=== PATIENT | male | born 1945 | race Caucasian/White ===

== ENCOUNTER 2017-10-28 11:32 | Emergency (ER) | payer MEDICARE, BC ==
[2017-10-28 12:53] VITALS: BP 101/68
[2017-10-28] MEDS ORDERED: Albuterol 2.5 MG/3 ML NEB.SOL* (0.083%) INH ONE (13:22)
[2017-10-28] MEDS ORDERED: Ipratropium 0.5MG/2.5ML NEB* 0.5 MG/2.5 ML NEB.SOLN INH ONE (13:22)
--- NOTE | 2017-10-28 13:43 | RAD ---
HISTORY: Cough COMPARISONS: August 25, 2014 VIEWS: 5: Frontal dual-energy and lateral views of the chest. FINDINGS: CARDIOMEDIASTINAL SILHOUETTE: The cardiomediastinal silhouette is normal. NIKKIE: The nikkie are normal. PLEURA: The costophrenic angles are sharp. No pleural abnormalities are noted. LUNG PARENCHYMA: The lungs are clear. ABDOMEN: The upper abdomen is clear. There is no subphrenic gas. BONES AND SOFT TISSUES: No bone or soft tissue abnormalities are noted. OTHER: None. IMPRESSION: NO ACTIVE CARDIOPULMONARY DISEASE.
--- NOTE | 2017-10-28 15:01 | UC ---
Wilfredo Fermin Nilda, scribed for Tricia Freed DO on 10/28/17 at 1328 . Respiratory Complaint HPI - HPI Summary HPI Summary: This patient is a 72 year old M presenting to [facility] with a chief complaint of constant, gradually worsening upper respiratory symptoms for the past 4 weeks. The patient rates the pain 1/10 in severity. Symptoms aggravated by bending over (feels pain in ears), and alleviated by cold weather and running. Patient reports ear fullness with brown drainage and loss of hearing, sinus pressure, productive cough (green/brown mucous), sleep disturbance secondary to cough, wheezing, loss of appetite, and fatigue. Pt states 3 days ago, he visited PCP and was given Z-pack and Benadryl to help him sleep. Twenty years ago, pt states he ruptured ear from playing softball. - History of Current Complaint Chief Complaint: UCRespiratory Stated Complaint: URI Hx Obtained From: Patient Onset/Duration: Sudden Onset, Lasting Weeks, Still Present Timing: Constant Severity Currently: Mild Pain Intensity: 1 Pain Scale Used: 0-10 Numeric Character: Cough: Productive, Sputum Description: - green/brown mucous Aggravating Factors: Other - bending over Alleviating Factors: Other - cold weather and running Associated Signs And Symptoms: Positive: URI, Nasal Congestion, Sinus Discomfort - Allergies/Home Medications Allergies/Adverse Reactions: Allergies Allergy/AdvReac Type Severity Reaction Status Date / Time No Known Allergies Allergy Unverified 10/28/17 12:53 Home Medications: Home Medications Azithromyxin AB (NF) [Z-Ab (Zithromax) 250 mg tabs #6] 10/28/17 [History Confirmed 10/28/17] Diphenhydramine HCl [Benadryl Allergy 25 MG CAP] 25 mg PO 10/28/17 [History] Guaifenesin-Codeine [Guaiatussin AC] 1 syp PO 10/28/17 [History] PMH/Surg Hx/FS Hx/Imm Hx Previously Healthy: Yes - Surgical History Surgical History: Yes Surgery Procedure, Year, and Place: T&A,. RT EYE SURGERY - MUSCLE CORRECTION. PROSTATECTOMY. Lt ELBOW. VASECTOMY - Family History Known Family History: Positive: Cardiac Disease - Social History Lives: With Family Alcohol Use: None Substance Use Type: None Smoking Status (MU): Never Smoked Tobacco Review of Systems Constitutional: Fatigue ENT: Ear Ache - fullness wih brown drainage and loss of hearing, Sinus Congestion Respiratory: Cough - productive, causing sleep disturbance, Other - wheezing Gastrointestinal: Other - loss of appetite All Other Systems Reviewed And Are Negative: Yes Physical Exam Triage Information Reviewed: Yes Appearance: Well-Appearing, No Pain Distress, Well-Nourished Vital Signs: Initial Vital Signs Temp 96.3 F 10/28/17 12:46 Pulse 66 10/28/17 12:46 Resp 18 10/28/17 12:46 BP 101/68 10/28/17 12:46 Pulse Ox 100 10/28/17 12:46 Vital Signs Reviewed: Yes Eyes: Positive: Conjunctiva Clear. Negative: Discharge ENT: Positive: Other - decreased hearing, bilat TMs grossly abnormal. Negative : Tonsillar swelling, Tonsillar exudate, Trismus, Muffled voice, Hoarse voice Neck exam: Normal Neck: Positive: Supple Respiratory: Positive: No respiratory distress, No accessory muscle use, Wheezing - diffuse wheezing Cardiovascular: Positive: RRR, No Murmur Abdomen Description: Positive: Nontender, Soft. Negative: Distended, Guarding Bowel Sounds: Positive: Present Musculoskeletal Exam: Normal Neurological: Positive: Alert, Muscle Tone Normal Psychological Exam: Normal Psychological: Positive: Age Appropriate Behavior Skin Exam: Normal Skin: Positive: Other - Warm, Dry, Normal color UC Diagnostic Evaluation - Laboratory O2 Sat by Pulse Oximetry: 100 - Radiology Radiology Interpretation Completed By: Radiologist - CXR, per radiologist, reveals no active cardiopulmonary disease. Dr. Freed has reviewed this report. Re-Evaluation - Re-Evaluation First Eval Re-Evaluation Time: 13:54 Comment: Wheezing resolved completely. Pt feels better after breathing treatment. Reviewed imaging results and D/C plan. Respiratory Course/Dx - Course Course Of Treatment: This patient is a 72 year old M presenting to [facility] with a chief complaint of constant, gradually worsening upper respiratory symptoms for the past 4 weeks. The patient rates the pain 1/10 in severity. Symptoms aggravated by bending over (feels pain in ears), and alleviated by cold weather and running. Patient reports ear fullness with brown drainage and loss of hearing, sinus pressure, productive cough (green/brown mucous), sleep disturbance secondary to cough, wheezing, loss of appetite, and fatigue. Pt states 3 days ago, he visited PCP and was given Z-pack and Benadryl to help him sleep. Twenty years ago, pt states he ruptured ear from playing softball. Pending labs and CXR. Pending labs and CXR. Influenza A and B are negative. CXR, per radiologist, reveals no active cardiopulmonary disease. Dr. Freed has reviewed this report. In the [facility] course, pt was given a breathing treatment. After treatment, wheezing resolved completely and pt felt better. Patient will be discharged with prescription for Ventolin, Augmentin, Tessalon, and Mucinex, and follow up from PCP. The patient is agreeable with this plan. Medications reviewed. Use of Benadryl discouraged. Allergies reviewed. The pt is Dx sinusitis, bronchitis, and otitis media. - Differential Dx/Diagnosis Differential Diagnosis/HQI/PQRI: Bronchitis, Lower Resp Infection, Sinusitis Provider Diagnoses: sinusitis, bronchitis, and otitis media. Discharge - Discharge Plan Condition: Stable Disposition: HOME Prescriptions: Albuterol HFA INHALER* [Ventolin HFA Inhaler*] 2 puff INH Q4H PRN #1 mdi PRN Reason: Sob/Wheezing Amoxicillin/Clavulanate TAB* [Augmentin TAB 875*] 875 mg PO BID #20 tab Benzonatate CAP* [Tessalon 100 MG CAP*] 100 mg PO TID #30 cap guaiFENesin ER TAB [Mucinex*] 600 mg PO BID PRN #1 box PRN Reason: Cough Patient Education Materials: Sinusitis (ED), Ear Infection (ED), Acute Bronchitis (ED) Referrals: Myles Rodríguez MD [Primary Care Provider] - 5 Days Lazaro Michelle MD [Medical Doctor] - (2-3 days) Additional Instructions: AUGMENTIN: Augmentin is a mixture of amoxicillin and clavulanate. Amoxicillin is a member of the penicillin family. It covers the germs likely to cause ear, bronchial, and urinary infections better than plain penicillin. The addition of clavulanate allows it to cover staph infections of the skin, as well as resistant cases of ear and sinus infections. Your physician has chosen Augmentin for you because of the special nature of your situation. Augmentin is best taken with meals. Nausea after taking the medication is rare, but can occur. Diarrhea can occur, particularly in small children. Vaginal yeast infections, and oral thrush in infants are also common. Contact your physician if these problems occur. Allergy to penicillins is common. If you have had an allergic reaction to any drug of the penicillin family, you should never take any other penicillin. Notify your doctor at once if you develop hives, shortness of breath, swelling, or faintness. ANYTIME YOU TAKE AN ANTIBIOTIC, IT IS IMPORTANT TO REPLENISH THE BODY'S SUPPLY OF "GOOD BACTERIA." YOU CAN GET GOOD BACTERIA FROM HIGH QUALITY CULTURED FOODS SUCH LOCAL YOGURT, SOUR KRAUT, ELISABET SUNI, NATURALLY FERMENTED PICKLES AND PROBIOTIC DRINKS. YOU CAN ALSO GET GOOD BACTERIA FROM A PROBIOTIC SUPPLEMENT. INHALED BRONCHODILATORS: You have received a prescription for an inhaled bronchodilator -- a medication which stimulates the airways in the lung to dilate. This improves the flow of air in asthma, bronchitis, and emphysema. These medicines have some similarity to adrenaline, and can cause similar side effects: shakiness, racing heart, and a sense of nervousness. These side effects decrease with time. Contact your doctor if these side effects are severe. Do not over-use the medicine. Too-frequent use of the inhaler may make it ineffective. Call your doctor if the inhaler is not controlling your symptoms at the prescribed doses. EXPECTORANT MEDICATION: WE SENT IN A SCRIPT FOR MUCINEX SO THAT IT IS EASIER FOR YOU TO PICK THE RIGHT MED AT THE PHARMACY. HOWEVER, YOU CAN ALSO GO TO THE [facility] STORE AND BUY PLAIN GUAIFENESIN WITHOU BINDERS OR FILLERS. An expectorant medicine has been prescribed. This type of drug makes mucous thinner, helping the sinuses, nose, and bronchial tubes to remain free of pus and mucous. Expectorants make a cough less severe and more comfortable, and help infected sinuses drain. In general, antihistamines defeat the purpose of the expectorant by making mucous thicker. They should be avoided unless specifically recommended by your physician. TESSALON PERLES: You have received a prescription for Tessalon Perles (benzonatate). This is a non-narcotic medicine for relief of cough. It usually works in about 15- 20 minutes and lasts around four hours. Tessalon Perles should be swallowed. They should not be chewed or dissolved in the mouth (this can produce temporary numbing of the mouth and choking can occur). If you develop any adverse effects such as wheezing, shortness of breath, hives, rash, itching, or lightheadedness, please return at once. REST NO RUNNING The documentation as recorded by the Wilfredo sanford Nilda accurately reflects the service I personally performed and the decisions made by me, Tricia Freed DO.
== END 2017-10-28 14:18 | disposition home or self-care (01) ==
LOC: UCEAST 11:32
DX: J32.9 Chronic sinusitis, unspecified (principal); J40 Bronchitis, not specified as acute or chronic; H66.90 Otitis media, unspecified, unspecified ear
CPT/HCPCS: 71046; 87502; 99212; G0463; J7644

== ENCOUNTER 2019-12-10 10:32 | Emergency (ER) | payer MEDICARE, OTHER ==
[2019-12-10 14:01] VITALS: BP 111/72
--- OUTSIDE RECORDS SUMMARY | 2019-12-10 14:10 | XMS REPORT | Continuity of Care Document ---
:1945 External Reference #:[id number] Author Name Steve Allen M.D., [facility], [facility] (transmitted by agent of provider Mery Rick) Address [address] [place] [address] Care Team Providers Name Role Phone Myles Rodríguez MD - Family Medicine Care Team Information Food Demonstrator [phone] Problems Active Problems Provider Date Atrial premature complex JEREMIAS Aguilar Onset: 07/30/2014 Bradycardia JEREMIAS Aguilar Onset: 07/30/2014 Patent foramen ovale JEREMIAS Aguilar Onset: 07/30/2014 Atrial fibrillation Steve Allen M.D., [facility], Onset: 08/01/2014 [facility] Prostatectomy Onset: Dyslipidemia Onset: Thoracic aortic ectasia Steve Allen M.D., [facility], Onset: 07/05/2017 [facility] Electrocardiogram abnormal Steve Allen M.D., [facility], Onset: 07/05/2016 [facility] Conduction disorder of the heart Steve Allen M.D., [facility], Onset: 2014 [facility] Difficulty breathing Steve Allen M.D., [facility], Onset: 08/13/2014 [facility] Social History Type Date Description Comments Sex Unknown Tobacco Use Start: Unknown Never Smoked Cigarettes Smoking Status Reviewed: 12/02/19 Never Smoked Cigarettes ETOH Use Drinks Alcoholic Beverages Rarely Tobacco Use Start: Unknown Patient has never smoked Recreational Drug Use Never Used Drugs Exercise Type/Frequency Exercises regularly Running and weight training. Typically doing daily Allergies, Adverse Reactions, Alerts Description No Known Drug Allergies Medications Active Medications SIG Qnty Indications Ordering Date Provider Multivitamins 1 by mouth every Unknown Capsules day, does not take consistently Medications Administered in Office Medication SIG Qnty Indications Ordering Provider Date Technetium TC 99M Steve Allen M.D., 08/11/2014 Tetrofosmin, Per Unit Dose [facility], [facility] Up To 40 Millicuries Injection Immunizations Description No Information Available Vital Signs Date Vital Result Comment 12/02/2019 1:02pm Weight 167.00 lb Heart Rate 72 /min BP Systolic Sitting 108 mmHg Lue reg cuff BP Diastolic Sitting 64 mmHg Lue reg cuff BP Systolic Standing 110 mmHg Lue reg cuff BP Diastolic Standing 66 mmHg Lue reg cuff Respiratory Rate 16 /min 01/31/2019 1:09pm Heart Rate 60 /min BP Systolic Sitting 110 mmHg Lue, reg cuff BP Diastolic Sitting 74 mmHg Lue, reg cuff Respiratory Rate 14 /min Results Description No Information Available Procedures Date Code Description Status 12/02/2019 40519 EKG Tracing & Interpretation Completed 11/13/2019 60069 ECHO Transthoracic, Real-Time 2D With Doppler And Color Completed Flow 11/13/2019 72478 ECHO Transthoracic, Real-Time 2D With Doppler And Color Completed Flow Medical Devices Description No Information Available Encounters Description No Information Available Assessments Date Code Description Provider 12/02/2019 I77.810 Thoracic aortic ectasia Steve Allen M.D., [facility] 11/13/2019 I77.810 Thoracic aortic ectasia Steve Allen M.D., [facility] 11/13/2019 I77.810 Thoracic aortic ectasia Traveling ECHO 1 Plan of Treatment 12/02/2019 - Steve lAlen M.D., [facility], [id number] Thoracic aortic ectasiaNew Orders:Echocardiogram, Ordered: 12/02/19Comments:As discussed, I feel your heart and aorta are doing well. Please avoid lifting more than 30 lbs , andcall me if heart concerns especially fainting.Follow up:one year after echo Functional Status Description No Information Available Mental Status Description No Information Available Referrals Description No Information Available
--- NOTE | 2019-12-10 14:19 | UC ---
FLU HPI - HPI Summary HPI Summary: Patient is a 74yo male presenting with nasal congestion, PND, sore throat, and productive cough x2 weeks. Notes sinus pressure and pain. Denies fever and chills. Denies sob and wheezing. Denies n/v. Denies body aches. States he is prone to sinus infections and gets them every year. Also states that his cough is worse at night and he is not sleep well at all. Normal appetite and fluid intake. Denies taking anything for symptom relief. Denies history of allergies, asthma, copd. Nonsmoker. - History of Current Complaint Chief Complaint: UCRespiratory Stated Complaint: UPPER RESPIRATORY ISSUE Hx Obtained From: Patient Pain Intensity: 0 - Allergy/Home Medications Allergies/Adverse Reactions: Allergies Allergy/AdvReac Type Severity Reaction Status Date / Time No Known Allergies Allergy Verified 12/10/19 14:01 Home Medications: Home Medications Multivitamins/Minerals TAB* [Theragran/minerals TAB*] 1 tab PO DAILY 06/27/16 [ History Confirmed 12/10/19] Amoxicillin/Clavulanate TAB* [Augmentin TAB 875*] 875 mg PO BID #14 tab [Rx] guaiFENesin/CODIENE 100mg/10mg [Robitussin AC 100Mg/10Mg in 5 ml] 10 ml PO Q4H PRN #150 ml MDD 40ml 12/10/19 [Rx] guaiFENesin/CODIENE 100mg/10mg [Robitussin AC 100Mg/10Mg in 5 ml] 10 ml PO Q4H PRN #150 ml MDD 60 12/10/19 [Rx] PMH/Surg Hx/FS Hx/Imm Hx Previously Healthy: Yes - Surgical History Surgical History: Yes Surgery Procedure, Year, and Place: T&A,. RT EYE SURGERY - MUSCLE CORRECTION. PROSTATECTOMY. Lt ELBOW. VASECTOMY - Family History Known Family History: Positive: Cardiac Disease - Social History Alcohol Use: None Substance Use Type: None Smoking Status (MU): Never Smoked Tobacco Review of Systems All Other Systems Reviewed And Are Negative: Yes Constitutional: Positive: Fatigue ENT: Positive: Sore Throat, Sinus Congestion, Sinus Pain/Tenderness Respiratory: Positive: Cough. Negative: Shortness Of Breath Cardiovascular: Positive: Negative Gastrointestinal: Positive: Negative Musculoskeletal: Positive: Negative Neurological/Mental Status: Positive: Negative Physical Exam Triage Information Reviewed: Yes Appearance: Well-Appearing, No Pain Distress, Well-Nourished Vital Signs: Initial Vital Signs Temp 97.9 F 12/10/19 13:56 Pulse 72 12/10/19 13:56 Resp 18 12/10/19 13:56 BP 111/72 12/10/19 13:56 Pulse Ox 97 12/10/19 13:56 Vital Signs Reviewed: Yes Eyes: Positive: Conjunctiva Clear ENT: Positive: Hearing grossly normal, Pharynx normal, Nasal congestion, Nasal drainage - PND, Sinus tenderness. Negative: Trismus, Muffled voice, Hoarse voice Neck exam: Normal Neck: Positive: Supple, Nontender, No Lymphadenopathy Respiratory Exam: Normal Respiratory: Positive: Lungs clear, Normal breath sounds, No respiratory distress, No accessory muscle use Cardiovascular Exam: Normal Cardiovascular: Positive: RRR Neurological: Positive: Alert Psychological: Positive: Age Appropriate Behavior Skin Exam: Normal Flu Course/Dx - Course Course Of Treatment: I treated patient with augmentin for sinusitis and instructed to continue with symptomatic treatment. Patient requested codeine cough syrup to aide in sleeping so I prescription was sent for that as well after checking [facility]. Instructed to follow up with pcp if symptoms persist. Patient voiced understanding and agreed with treatment plan. - Differential Dx/Diagnosis Differential Diagnosis/HQI/PQRI: Bronchitis, Influenza, Upper Respiratory Infection Provider Diagnosis: Acute maxillary sinusitis, Acute bronchitis Discharge ED - Sign-Out/Discharge Documenting (check all that apply): Patient Departure All imaging exams completed and their final reports reviewed: No Studies - Discharge Plan Condition: Stable Disposition: HOME Prescriptions: Amoxicillin/Clavulanate TAB* [Augmentin TAB 875*] 875 mg PO BID #14 tab guaiFENesin/CODIENE 100mg/10mg [Robitussin AC 100Mg/10Mg in 5 ml] 10 ml PO Q4H PRN #150 ml MDD 60 PRN Reason: Cough Patient Education Materials: Sinusitis (ED), Acute Bronchitis (ED) Referrals: Myles Rodríguez MD [Primary Care Provider] - If Needed Additional Instructions: Take amoxicillin as prescribed. Take cough syrup as prescribed. Continue to get plenty of rest and fluids. Follow up with your primary care provider if symptoms do not improve within 7 days. - Billing Disposition and Condition Condition: STABLE Disposition: Home
== END 2019-12-10 14:54 | disposition home or self-care (01) ==
LOC: UCEAST 10:32
DX: J01.00 Acute maxillary sinusitis, unspecified (principal); J40 Bronchitis, not specified as acute or chronic
CPT/HCPCS: 99212; G0463